=== PATIENT | female | born 1995 | race Caucasian/White ===

== ENCOUNTER 2020-04-10 12:47 | Emergency (ER) | payer MEDICAID ==
[~2020-04-10] VITALS: Ht 154.9 cm; Wt 93.0 kg
[2020-04-10] MEDS ORDERED: TETanus/Pertussis (Acell)/Diphther VAC/PF (Tdap-Adult) 0.5ml syringe IMVAC ONE (13:55)
[2020-04-10 14:13] VITALS: BP 129/58
== END 2020-04-10 14:14 | disposition home or self-care (01) ==
LOC: ER 12:48
DX: S80.11XA Contusion of right lower leg, initial encounter (principal); M79.605 Pain in left leg; M25.561 Pain in right knee; Z72.89 Other problems related to lifestyle; Z87.891 Personal history of nicotine dependence; W18.40XA Slipping, tripping and stumbling without falling, unspecified, initial encounter; Y93.89 Activity, other specified; Y92.89 Other specified places as the place of occurrence of the external cause; Y99.8 Other external cause status
CPT/HCPCS: 73564; 90471; 90715; 99284